=== PATIENT | female | born 1965 | race African-American/Black ===

== ENCOUNTER 2017-10-20 19:55 | Emergency (ER) | payer OTHER ==
--- NOTE | 2017-10-20 20:20 | PDOC ---
Rapid Medical Evaluation Time Seen by Provider: 10/20/17 20:16 Medical Evaluation: Allergies Allergy/AdvReac Type Severity Reaction Status Date / Time No Known Allergies Allergy Verified 12/27/14 07:12 10/20/17 20:16 I have performed a brief in-person evaluation of this patient. The patient presents with a chief complaint of: cough x 1 week, had bronchitis "my whole life", saw doc was given zpack, tamiflu, levaquin, prednisone last wed , no relief, + vomiting, +fevers Pertinent physical exam findings: persistent coughing, bark-like cough, hoarseness I have ordered the following: duoneb The patient will proceed to the ED for further evaluation. Discharge Disposition - Diagnosis Cough - Referrals - Patient Instructions - Post Discharge Activity
[2017-10-20 20:23] VITALS: BP 98/50; PULSE 85; TEMP 98.6; BMI 30.7
[2017-10-20] MEDS ORDERED: ALBUTEROL SO4 2.5/IPRATROPIUM 0.5 INH SOL 3 ML VIAL.NEB. NEB ONE ×2 (20:23→21:09)
[2017-10-20] MEDS ORDERED: methylPREDNISolone NA SUCC 125 MG/2 ML VIAL IVPB ONE (20:50)
[2017-10-20] MEDS ORDERED: MAGNESIUM SULF 50% (8.12 MEQ/2 ML-1 GM VIAL) IVPB ONE (20:51)
[2017-10-20] MEDS ORDERED: SODIUM CHLORIDE 1,000 ML IV STA (20:51)
--- NOTE | 2017-10-20 20:51 | PDOC ---
History of Present Illness - General History Source: Patient, Old Records Exam Limitations: No Limitations - History of Present Illness Initial Comments: 10/20/17 21:03 The patient is a 52 year old female with a significant past medical history of diabetes and several episode of bronchitis in the past, who presents to the emergency department today for further evaluation of persistent cough, shortness of breath, and chest discomfort since wednesday (3 days). The patient states that she was on a Z-jairon and steroids with no relief of symptoms. She endorses subjective fever but denies history of smoking and EtOH abuse. Her LMP was last week. <Cesario Urban - Last Filed: 10/20/17 21:03> - General History Source: Patient <Tripp Spain - Last Filed: 10/21/17 00:05> - General Chief Complaint: Respiratory Stated Complaint: COUGHING Time Seen by Provider: 10/20/17 20:16 Past History <Cesario Urban - Last Filed: 10/20/17 21:03> - Suicide/Smoking/Psychosocial Hx Smoking Status: No Smoking History: Never smoked Have you smoked in the past 12 months: No Number of Cigarettes Smoked Daily: 0 Information on smoking cessation initiated: No Hx Alcohol Use: No Drug/Substance Use Hx: No <Tripp Spain - Last Filed: 10/21/17 00:05> - Past Medical History Allergies/Adverse Reactions: Allergies Allergy/AdvReac Type Severity Reaction Status Date / Time No Known Allergies Allergy Verified 12/27/14 07:12 Home Medications: Ambulatory Orders Levofloxacin [Levaquin] 500 mg PO DAILY 10/20/17 Prednisone 25 mg PO BID 10/20/17 Promethazine/Phenyleph/Codeine [Phenergan VC+Codeine Syrup] 5 ml PO QID #60 ml MDD 20 10/21/17 Review of Systems - Review of Systems Comments:: 10/20/17 21:04 CONSTITUTIONAL: (+) Fever Absent: No chills, no fatigue EYES: Absent: visual changes ENT: Absent: ear pain, no sore throat CARDIOVASCULAR: (+) Chest discomfort Absent: No palpitations RESPIRATORY: (+) Cough, SOB GI: Absent: abdominal pain, no nausea, no vomiting, no constipation, no diarrhea GENITOURINARY: Absent: dysuria, no frequency, no hematuria MUSCULOSKELETAL: Absent: back pain, no arthralgia, no myalgia SKIN: Absent: rash <Cesario Urban - Last Filed: 10/20/17 21:03> *Physical Exam - Vital Signs Last Vital Signs Temp Pulse Resp BP Pulse Ox 98.6 F 85 21 98/50 96 10/20/17 20:20 10/20/17 20:20 10/20/17 20:20 10/20/17 20:20 10/20/17 20:20 - Physical Exam Comments: 10/20/17 21:05 GENERAL: (+) Well-appearing, well-nourished. Mild distress. HEENT: Normocephalic, atraumatic. PERRL, EOM intact. CARDIOVASCULAR: Normal S1, S2. Regular rate and rhythm. PULMONARY: (+) Barking cough, Prolonged expiratory phase with minimal rhonchi ABDOMEN: Soft, non-distended, non-tender. EXTREMITIES: Normal ROM in all four extremities. No gross deformities. SKIN: Warm, dry. No rash NEUROLOGICAL: No focal neurological deficits. <Cesario Urban - Last Filed: 10/20/17 21:03> - Vital Signs Last Vital Signs Temp Pulse Resp BP Pulse Ox 98.6 F 85 21 98/50 96 10/20/17 20:20 10/20/17 20:20 10/20/17 20:20 10/20/17 20:20 10/20/17 20:20 <Tripp Spain - Last Filed: 10/21/17 00:05> ED Treatment Course - Medications Given in the ED: ED Medications Discontinued Medications Generic Name Dose Route Start Last Admin Trade Name Freq PRN Reason Stop Dose Admin Albuterol/Ipratropium 1 amp 10/20/17 20:23 10/20/17 20:27 Duoneb - NEB 10/20/17 20:24 1 amp ONCE ONE Administration <Cesario Urban - Last Filed: 10/20/17 21:03> - LABORATORY CBC & Chemistry Diagram: 10/20/17 20:49 10/20/17 20:49 - Medications Given in the ED: ED Medications Discontinued Medications Generic Name Dose Route Start Last Admin Trade Name Freq PRN Reason Stop Dose Admin Albuterol/Ipratropium 1 amp 10/20/17 20:23 10/20/17 20:27 Duoneb - NEB 10/20/17 20:24 1 amp ONCE ONE Administration <Tripp Spain - Last Filed: 10/21/17 00:05> Medical Decision Making - Medical Decision Making 10/21/17 00:04 Dr. Spain: The scribe's documentation has been prepared under my direction and personally reviewed by me in its entirery. I confirm that the note above accurately reflects all work, treatment, procedures, and medical decision making performed by me. <Tripp Spain - Last Filed: 10/21/17 00:05> *DC/Admit/Observation/Transfer - Attestations Scribe Attestion: 10/20/17 21:05 Documentation prepared by Cesario Urban, acting as medical physicist for Tripp Spain DO. <Cesario Urban - Last Filed: 10/20/17 21:03> <Tripp Spain - Last Filed: 10/21/17 00:05> Diagnosis at time of Disposition: Cough - Discharge Dispostion Disposition: HOME Condition at time of disposition: Stable - Prescriptions Prescriptions: Promethazine/Phenyleph/Codeine [Phenergan VC+Codeine Syrup] 5 ml PO QID #60 ml MDD 20 - Referrals Referrals: Amarjit Gonzalez [Primary Care Provider] - Martinez Moran MD, MD [Staff Physician] - - Patient Instructions Printed Discharge Instructions: DI for Cough -- Adult Additional Instructions: Please take medication as directed. Avoid alcohol when taking Phenergan with codeine. TAke a Claritin 10mg tab daily to see if cough improves. Follow up with the doctor referred to you. - Post Discharge Activity Forms/Work/School Notes: Back to Work
[2017-10-20 21:13] LABS: BASO % 0.7 % (0-2.0); EOS % 1.6 % (0-4.5); HEMATOCRIT 37.4 % (32.4-45.2); HEMOGLOBIN 12.4 GM/dL (10.7-15.3); LYMPH % 42.9 % (8-40); MCH 28.8 pg (25.7-33.7); MCHC 33.2 g/dl (32.0-36.0); MEAN CELL VOLUME 86.7 fl (80-96); MONO % 6.1 % (3.8-10.2); NEUT % 48.7 % (42.8-82.8); PLATELET COUNT 311 K/MM3 (134-434); RBC 4.31 M/mm3 (3.60-5.2); RDW 14.4 % (11.6-15.6); WHITE BLOOD COUNT 9.7 K/mm3 (4.0-10.0)
[2017-10-20] MEDS ORDERED: MAGNESIUM SULF 50% (8.12 MEQ/2 ML-1 GM VIAL) ONE (21:14)
[2017-10-20] MEDS ORDERED: methylPREDNISolone NA SUCC 125 MG/2 ML VIAL ONE (21:15)
[2017-10-20 21:48] LABS: ALBUMIN 3.7 g/dl (3.4-5.0); ANION GAP 8 (8-16); BILIRUBIN,TOTAL 0.2 mg/dL (0.2-1.0); BLOOD UREA NITROGEN 13 mg/dL (7-18); CALCIUM 8.1 mg/dL (8.5-10.1); CHLORIDE 104 mmol/L (98-107); CO2 28 mmol/L (21-32); CREATININE 0.8 mg/dL (0.55-1.02); GLUCOSE,RANDOM 131 mg/dL (74-106); POTASSIUM 3.9 mmol/L (3.5-5.1); SGOT/AST 13 U/L (15-37); SGPT/ALT 19 U/L (12-78); SODIUM 140 mmol/L (136-145); TOT PROT 7.3 g/dl (6.4-8.2)
[2017-10-20 21:49] LABS: ALK PHOS 81 U/L (45-117)
[2017-10-20] MEDS ORDERED: guaiFENesin/CODEINE 10 ML UNIT-DOSE CUPS PO ONE (22:15)
== END 2017-10-21 00:16 | disposition home or self-care (01) ==
LOC: JER 19:55
PROC: 3E0F7GC Introduction of Other Therapeutic Substance into Respiratory Tract, Via Natural or Artificial Opening (ICD-10-PCS; principal; 2017-10-20)
PROC: 3E0F7GC Introduction of Other Therapeutic Substance into Respiratory Tract, Via Natural or Artificial Opening (ICD-10-PCS; 2017-10-20)
PROC: 3E0337Z Introduction of Electrolytic and Water Balance Substance into Peripheral Vein, Percutaneous Approach (ICD-10-PCS; 2017-10-20)
PROC: 3E033GC Introduction of Other Therapeutic Substance into Peripheral Vein, Percutaneous Approach (ICD-10-PCS; 2017-10-20)
PROC: 3E0333Z Introduction of Anti-inflammatory into Peripheral Vein, Percutaneous Approach (ICD-10-PCS; 2017-10-20)
DX: R05 Cough (principal); Z87.09 Personal history of other diseases of the respiratory system
CPT/HCPCS: 36415; 71046-TC-FY; 80053; 83605; 84703; 85025; 87040; 99282-25

== ENCOUNTER 2018-09-10 00:57 | Emergency (ER) | payer OTHER ==
[2018-09-10 01:18] VITALS: BMI 29.7
--- NOTE | 2018-09-10 02:21 | PDOC ---
History of Present Illness - General Chief Complaint: Cold Symptoms Stated Complaint: FEVER/CHILLS/COLD SYMPTOMS Time Seen by Provider: 09/10/18 01:29 History Source: Patient Exam Limitations: No Limitations - History of Present Illness Initial Comments: 09/10/18 02:20 Best Contact: PCP: Luisx: Pshx: Allergies: FH: Social Hx: Cigarettes/ Alcohol/ Drugs/ LMP: 53-year-old female presents to the emergency department complaining of subjective fever, chills, body aches with a productive cough/green phlegm 2 days without nausea/vomiting/diarrhea, headache, dizziness, lightheadedness, facial pain, nasal congestion, facial pain earache, sore throat, difficulty swallowing, neck pain/stiffness, back pains, chest pain, shortness of breath, abdominal pains, flank pains, urinary symptoms: Frequency/urgency/hesitancy, [place] numbness or tingling sensation. Patient states she took Advil 6 hours ago with some relief. No sick contacts. Past History - Past Medical History Allergies/Adverse Reactions: Allergies Allergy/AdvReac Type Severity Reaction Status Date / Time No Known Allergies Allergy Verified 09/10/18 01:16 Home Medications: Ambulatory Orders Levofloxacin [Levaquin] 500 mg PO DAILY 10/20/17 Prednisone 25 mg PO BID 10/20/17 Promethazine/Phenyleph/Codeine [Phenergan VC+Codeine Syrup] 5 ml PO QID #60 ml MDD 20 10/21/17 Azithromycin [Zithromax -] 250 mg PO DAILY #4 tab 09/10/18 Methylprednisolone [Medrol Dose Marcelino] 4 mg PO ASDIR #21 tablet 09/10/18 COPD: No - Immunization History Immunization Up to Date: Yes - Suicide/Smoking/Psychosocial Hx Smoking Status: No Smoking History: Never smoked Have you smoked in the past 12 months: No Number of Cigarettes Smoked Daily: 0 Information on smoking cessation initiated: No Hx Alcohol Use: No Drug/Substance Use Hx: No Review of Systems - Review of Systems Able to Perform ROS?: Yes Comments:: 09/10/18 02:18 CONSTITUTIONAL: +subjective fever/chills, body aches Absent: diaphoresis, generalized weakness, loss of appetite HEENT: Absent: rhinorrhea, nasal congestion, throat pain, throat swelling, difficulty swallowing, mouth swelling, ear pain, eye pain, visual Changes CARDIOVASCULAR: Absent: chest pain, loss of consciousness, palpitations, irregular heart rate, peripheral edema RESPIRATORY: +cough Absent: shortness of breath, dyspnea with exertion, orthopnea, wheezing, stridor , hemoptysis GASTROINTESTINAL: Absent: abdominal pain, abdominal distension, nausea, vomiting, diarrhea, constipation, melena, hematochezia GENITOURINARY: Absent: dysuria, frequency, urgency, hesitancy, hematuria, flank pain, genital pain MUSCULOSKELETAL: Absent: myalgia, arthralgia, joint swelling SKIN: Absent: rash, itching, pallor HEMATOLOGIC/IMMUNOLOGIC: Absent: easy bleeding, easy bruising, lymphadenopathy, frequent infections ENDOCRINE: Absent: unexplained weight gain, unexplained weight loss, heat intolerance, cold intolerance NEUROLOGIC: Absent: headache, focal weakness or paresthesias, dizziness, unsteady gait, seizure, mental status changes, bladder or bowel incontinence Is the patient limited Spanish proficient: No *Physical Exam - Vital Signs Last Vital Signs Temp Pulse Resp BP Pulse Ox 97.9 F 70 18 144/94 97 09/10/18 01:16 09/10/18 01:16 09/10/18 01:16 09/10/18 01:16 09/10/18 01:16 - Physical Exam Comments: 09/10/18 02:19 GENERAL: Well developed, well nourished. Awake and alert. No acute distress. HEENT: Normocephalic, atraumatic. PERRLA, EOMI. No conjunctival pallor. Sclera are non- icteric. Moist mucous membranes. Oropharynx is clear. NECK: Supple. Full ROM. No JVD. Carotid pulses 2+ and symmetric, without bruits. No thyromegaly. No lymphadenopathy. CARDIOVASCULAR: Regular rate and rhythm. No murmurs, rubs, or gallops. Distal pulses are 2+ and symmetric. PULMONARY: No evidence of respiratory distress. Lungs clear to auscultation bilaterally. No wheezing, rales or rhonchi. ABDOMINAL: Soft. Non-tender. Non-distended. No rebound or guarding. No organomegaly. Normoactive bowel sounds. MUSCULOSKELETAL Normal range of motion at all joints. No bony deformities or tenderness. No CVA tenderness. EXTREMITIES: No cyanosis. No clubbing. No edema. No calf tenderness. SKIN: Warm and dry. Normal capillary refill. No rashes. No jaundice. NEUROLOGICAL: Alert, awake, appropriate. Cranial nerves 2-12 intact. No deficits to light touch and temperature in face, upper extremities and lower extremities. No motor deficits in the in face, upper extremities and lower extremities. Normoreflexic in the upper and lower extremities. Normal speech. Toes are down- going bilaterally. Gait is normal without ataxia. Moderate Sedation - Procedure Monitoring Vital Signs: Procedure Monitoring Vital Signs Temperature 97.9 F 09/10/18 01:16 Pulse Rate 70 09/10/18 01:16 Respiratory Rate 18 09/10/18 01:16 Blood Pressure 144/94 09/10/18 01:16 O2 Sat by Pulse Oximetry (%) 97 09/10/18 01:16 *DC/Admit/Observation/Transfer Diagnosis at time of Disposition: Acute bronchitis Qualifiers: Bronchitis organism: unspecified organism Qualified Code(s): J20.9 - Acute bronchitis, unspecified - Discharge Dispostion Condition at time of disposition: Stable Decision to Admit order: No - Prescriptions Prescriptions: Azithromycin [Zithromax -] 250 mg PO DAILY #4 tab Methylprednisolone [Medrol Dose Marcelino] 4 mg PO ASDIR #21 tablet - Referrals Referrals: Amarjit Gonzalez [Primary Care Provider] - - Patient Instructions Printed Discharge Instructions: DI for Acute Bronchitis Additional Instructions: Increase fluids Take Tylenol alternating with Motrin as needed for fever Antibiotics/steroids as prescribed Return back to the ER for severe/persistent or worsening symptoms - Post Discharge Activity Forms/Work/School Notes: Back to Work
[2018-09-10] MEDS ORDERED: AZITHROMYCIN 500 MG TABLET PO ONE (02:25)
[2018-09-10] MEDS ORDERED: DEXAMETHASONE 4 MG TABLET (FP) PO ONE (03:30)
[2018-09-10 04:28] VITALS: BP 124/68; PULSE 78; TEMP 98.2
== END 2018-09-10 04:37 | disposition home or self-care (01) ==
LOC: JER 00:57
DX: J20.9 Acute bronchitis, unspecified (principal)
CPT/HCPCS: 87070; 87804; 87880; 99281-25

== ENCOUNTER 2019-10-03 22:27 | Emergency (ER) | payer OTHER ==
[2019-10-03 22:50] VITALS: BP 157/92; PULSE 85; TEMP 99.8; BMI 31.3
[2019-10-03] MEDS ORDERED: ACETAMINOPHEN 650 MG/20.3 ML ORAL SOLUTION (CUPS) PO ONE (23:10)
--- NOTE | 2019-10-04 00:13 | PDOC ---
Documentation entered by Lulú Kaba SCRIBE, acting as scribe for Daysi Hsieh MD. Daysi Hsieh MD: This documentation has been prepared by the Sendy pathak Xhesika, SCRIBE, under my direction and personally reviewed by me in its entirety. I confirm that the documentation accurately reflects all work, treatment, procedures, and medical decision making performed by me. History of Present Illness - General Chief Complaint: Cold Symptoms Stated Complaint: BODY ACHE/COUGHING/FEVER History Source: Patient Exam Limitations: No Limitations - History of Present Illness Initial Comments: 10/03/19 23:20 The patient is a 54 year old female with a significant PMH of bronchitis in the past and DM who presents to the emergency department for 2 days of cough. Pt reports associated body aches, fever, headache, nausea and vomiting. Pt states her symptoms are similar to her previous bronchitis. The patient denies chest pain, shortness of breath. Denies diarrhea and constipation. Denies dysuria, frequency, urgency and hematuria. Allergies: NKDA Past History - Past Medical History Allergies/Adverse Reactions: Allergies Allergy/AdvReac Type Severity Reaction Status Date / Time No Known Allergies Allergy Verified 09/10/18 01:16 Home Medications: Ambulatory Orders Levofloxacin [Levaquin] 500 mg PO DAILY 10/20/17 Prednisone 25 mg PO BID 10/20/17 Promethazine/Phenyleph/Codeine [Phenergan VC+Codeine Syrup] 5 ml PO QID #60 ml MDD 20 10/21/17 Azithromycin [Zithromax -] 250 mg PO DAILY #4 tab 09/10/18 Methylprednisolone [Medrol Dose Marcelino] 4 mg PO ASDIR #21 tablet 09/10/18 COPD: No - Immunization History Immunization Up to Date: Yes - Psycho Social/Smoking Cessation Hx Smoking Status: No Smoking History: Never smoked Have you smoked in the past 12 months: No Number of Cigarettes Smoked Daily: 0 Hx Alcohol Use: No Drug/Substance Use Hx: No Review of Systems - Review of Systems Able to Perform ROS?: Yes Comments:: 10/03/19 23:21 GENERAL/CONSTITUTIONAL: +fever, +bodyaches. No chills. HEAD, EYES, EARS, NOSE AND THROAT: No change in vision. No ear pain or discharge. No sore throat. CARDIOVASCULAR: No chest pain or shortness of breath. RESPIRATORY: + cough. No wheezing, or hemoptysis. GASTROINTESTINAL: +nausea, vomiting. No diarrhea or constipation. GENITOURINARY: No dysuria, frequency, or change in urination. MUSCULOSKELETAL: No joint or muscle swelling or pain. No neck or back pain. SKIN: No rash NEUROLOGIC: +headache. No vertigo, loss of consciousness, or change in strength/ sensation. ENDOCRINE: No increased thirst. No abnormal weight change. HEMATOLOGIC/LYMPHATIC: No anemia, easy bleeding, or history of blood clots. ALLERGIC/IMMUNOLOGIC: No hives or skin allergy. *Physical Exam - Vital Signs Last Vital Signs Temp Pulse Resp BP Pulse Ox 99.8 F H 85 20 157/92 95 10/03/19 22:44 10/03/19 22:44 10/03/19 22:44 10/03/19 22:44 10/03/19 22:44 - Physical Exam 10/03/19 23:22 GENERAL: Awake, alert, and fully oriented, in no acute distress HEAD: No signs of trauma NECK: Normal ROM, supple, no lymphadenopathy, JVD, or masses LUNGS: Breath sounds equal, clear to auscultation bilaterally. No wheezes, and no crackles HEART: +tachy. No murmurs, rubs or gallops ABDOMEN: Soft, nontender, normoactive bowel sounds. No guarding, no rebound. No masses EXTREMITIES: Normal range of motion, no edema. No clubbing or cyanosis. No cords, erythema, or tenderness NEUROLOGICAL: Cranial nerves II through XII grossly intact. Normal speech, normal gait SKIN: Warm, Dry, normal turgor, no rashes or lesions noted. ED Treatment Course - Medications Given in the ED: ED Medications Discontinued Medications Generic Name Dose Route Start Last Admin Trade Name Freq PRN Reason Stop Dose Admin Acetaminophen 650 mg 10/03/19 23:10 10/03/19 23:15 Tylenol Oral Solution - PO 10/03/19 23:11 650 mg ONCE ONE Administration Medical Decision Making - Medical Decision Making 10/04/19 00:11 This patient has had several days of cough, body aches, fever, general malaise and some nausea and saw her primary care physician and has prescriptions for Tamiflu, Zithromax, Solu-Medrol, Levaquin and came today because she was still coughing During her observation in the emergency department I did not see her cough once She had no respiratory distress, her lungs are clear Patient was discharged home and told to please take her medications as already prescribed and follow-up with her primary care physician Discharge - Discharge Information Problems reviewed: Yes Clinical Impression/Diagnosis: Cough Fever Qualifiers: Fever type: due to other condition Qualified Code(s): R50.81 - Fever presenting with conditions classified elsewhere Condition: Good Disposition: HOME - Follow up/Referral Referrals: Demarcus Xiao [Primary Care Provider] - - Patient Discharge Instructions Patient Printed Discharge Instructions: DI for Cough -- Adult, DI for Viral Upper Respiratory Infection -- Adult Additional Instructions: please followup with your primary doctor and take your medications as prescribed - Post Discharge Activity
== END 2019-10-04 00:38 | disposition home or self-care (01) ==
LOC: JER 22:27
DX: J06.9 Acute upper respiratory infection, unspecified (principal); B97.89 Other viral agents as the cause of diseases classified elsewhere
CPT/HCPCS: 87804; 99282-25

== ENCOUNTER 2021-03-22 11:21 | Emergency (ER) | payer SELFPAY ==
[2021-03-22 11:27] VITALS: BP 141/91; PULSE 90; TEMP 98.7; BMI 31.3
[2021-03-22] MEDS ORDERED: methylPREDNISolone NA SUCC 125 MG/2 ML VIAL IM ONE (11:51)
[2021-03-22] MEDS ORDERED: guaiFENesin/CODEINE 10 ML UNIT-DOSE CUPS PO ONE (11:51)
[2021-03-22] MEDS ORDERED: guaiFENesin/CODEINE 5 ML UNIT-DOSE CUPS PO ONE (12:04)
[2021-03-22] MEDS ORDERED: methylPREDNISolone NA SUCC 125 MG/2 ML VIAL ONE (12:05)
[2021-03-22] MEDS ORDERED: ALBUTEROL SO4 2.5/IPRATROPIUM 0.5 INH SOL 3 ML VIAL.NEB. NEB ONE ×2 (12:16→12:17)
[2021-03-22] MEDS ORDERED: SODIUM CHLORIDE FOR INHALATION 3 ML VIAL.NEB IH ONE (12:16)
== END 2021-03-22 14:02 | disposition home or self-care (01) ==
LOC: JER 11:21
PROC: 3E0F7GC Introduction of Other Therapeutic Substance into Respiratory Tract, Via Natural or Artificial Opening (ICD-10-PCS; principal; 2021-03-22)
PROC: 3E023NZ Introduction of Analgesics, Hypnotics, Sedatives into Muscle, Percutaneous Approach (ICD-10-PCS; 2021-03-22)
DX: J20.9 Acute bronchitis, unspecified (principal); R05 Cough
CPT/HCPCS: 71046-TC-FY; 99284-25

== ENCOUNTER 2021-12-05 19:31 | Emergency (ER) | payer OTHER ==
[2021-12-05 19:59] VITALS: BP 153/97; PULSE 70; TEMP 98.2; BMI 31.3
[2021-12-05] MEDS ORDERED: ACETAMINOPHEN 1000 MG/100 ML BAG IVPB ONE (20:40)
[2021-12-05] MEDS ORDERED: METOCLOPRAMIDE HCL INJECTION 10 MG/2 ML VIAL IVPB ONE (20:40)
[2021-12-05] MEDS ORDERED: METOCLOPRAMIDE HCL INJECTION 10 MG/2 ML VIAL ONE (20:47)
[2021-12-05] MEDS ORDERED: ACETAMINOPHEN INJECTION 100 ML IVPB ONE (20:47)
== END 2021-12-05 22:21 | disposition home or self-care (01) ==
LOC: JER 19:31
PROC: 3E033GC Introduction of Other Therapeutic Substance into Peripheral Vein, Percutaneous Approach (ICD-10-PCS; principal; 2021-12-05)
DX: R51.9 Headache, unspecified (principal)
CPT/HCPCS: 70450-TC; 99285-25

== ENCOUNTER 2022-07-13 08:46 | Emergency (ER) | payer OTHER ==
[2022-07-13 09:13] VITALS: BP 171/99; PULSE 81; RESP 18; TEMP 97.7; BMI 31.3
[2022-07-13] MEDS ORDERED: ALBUTEROL SO4 2.5/IPRATROPIUM 0.5 INH SOL 3 ML VIAL.NEB. NEB ONE (10:49)
[2022-07-13] MEDS: ALBUTEROL SO4 2.5/IPRATROPIUM 0.5 INH SOL 3 ML VIAL.NEB. NEB SCH ×2 (11:00→11:01)
[2022-07-13] MEDS ORDERED: SODIUM CHLORIDE FOR INHALATION 3 ML VIAL.NEB IH ONE (11:35)
== END 2022-07-13 13:29 | disposition home or self-care (01) ==
LOC: JERFT 08:46 → JER 08:46 → JERFT 13:29
PROC: 3E0F7GC Introduction of Other Therapeutic Substance into Respiratory Tract, Via Natural or Artificial Opening (ICD-10-PCS; principal; 2022-07-13)
DX: J20.5 Acute bronchitis due to respiratory syncytial virus (principal)
CPT/HCPCS: 0241U-QW; 71046-TC-FY; 93005; 93010; 99285-25

== ENCOUNTER 2023-09-06 07:06 | Emergency (ER) | payer OTHER ==
[2023-09-06 07:22] VITALS: PULSE 77; RESP 18; BMI 31.3
[2023-09-06] MEDS ORDERED: ACETAMINOPHEN 500 MG TABLET (FP) PO ONE (07:49)
[2023-09-06] MEDS ORDERED: KETOROLAC TROMETHAMINE 30 MG/1 ML VIAL IM ONE (07:49)
[2023-09-06] MEDS ORDERED: KETOROLAC TROMETHAMINE 30 MG/1 ML VIAL ONE (07:54)
[2023-09-06] MEDS ORDERED: ACETAMINOPHEN 500 MG TABLET (FP) ONE (07:54)
[2023-09-06] MEDS ORDERED: LIDOCAINE 4% PATCH TP ONE ×2 (08:24→08:27)
[2023-09-06] MEDS ORDERED: oxyCODONE HCL 5 MG TABLET PO ONE (11:01)
[2023-09-06 11:02] VITALS: BP 144/93; TEMP 97.8
[2023-09-06] MEDS ORDERED: oxyCODONE HCL 5 MG TABLET ONE (11:05)
[2023-09-06] MEDS ORDERED: LIDOCAINE PATCH REMOVAL MC ONE (22:00)
== END 2023-09-06 11:14 | disposition home or self-care (01) ==
LOC: JER 07:06
PROC: 3E0233Z Introduction of Anti-inflammatory into Muscle, Percutaneous Approach (ICD-10-PCS; principal; 2023-09-06)
DX: M25.511 Pain in right shoulder (principal)
CPT/HCPCS: 73030-TC-RT-FY; 99284-25